=== PATIENT | female | born 1980 | race Two or more races ===

== ENCOUNTER 2022-09-27 14:00 | Outpatient (CLI) | payer OTHER | END 2022-09-27 16:09 | disposition home or self-care (01) | LOC: PRENATAL 14:00 | PROVIDERS: ATTEND Obstetrics & Gynecology Maternal & Fetal Medicine | DX: O35.9XX0 Maternal care for (suspected) fetal abnormality and damage, unspecified, not applicable or unspecified (principal); O09.519 Supervision of elderly primigravida, unspecified trimester; O35.3XX0 Maternal care for (suspected) damage to fetus from viral disease in mother, not applicable or unspecified; Z3A.19 19 weeks gestation of pregnancy ==

== ENCOUNTER 2022-11-11 18:24 | Outpatient (CLI) | payer OTHER ==
[2022-11-11] MEDS ORDERED: CHILDREN'S ASPI81 MG PO (19:41)
[2022-11-11] MEDS ORDERED: VITAMIN D310 MCG/1 M PO (19:42)
[2022-11-11] MEDS ORDERED: PRENATAL TABLE1 EAC1 PO (19:42)
== END 2022-11-12 19:21 | disposition home or self-care (01) ==
LOC: OBS/DEL 18:24
PROVIDERS: ATTEND Obstetrics & Gynecology
DX: O09.522 Supervision of elderly multigravida, second trimester (principal); R82.71 Bacteriuria; Z3A.26 26 weeks gestation of pregnancy

== ENCOUNTER 2022-12-27 09:04 | Outpatient (CLI) | payer OTHER ==
[~2022-12-27 09:04] MED LIST: CHILDREN'S ASPI81 MG PO; PRENATAL TABLE1 EAC1 PO; VITAMIN D310 MCG/1 M PO
== END 2022-12-27 10:25 | disposition home or self-care (01) ==
LOC: PRENATAL 09:04
PROVIDERS: ATTEND Obstetrics & Gynecology Maternal & Fetal Medicine
DX: O26.849 Uterine size-date discrepancy, unspecified trimester (principal); O35.9XX0 Maternal care for (suspected) fetal abnormality and damage, unspecified, not applicable or unspecified; O36.8199 Decreased fetal movements, unspecified trimester, other fetus; O09.519 Supervision of elderly primigravida, unspecified trimester; Z3A.32 32 weeks gestation of pregnancy

== ENCOUNTER 2023-01-31 18:59 | Inpatient (IN) | payer OTHER ==
[~2023-01-31] VITALS: Ht 157.5 cm; Wt 68.0 kg
[2023-01-31] MEDS ORDERED: VALTREX1000 MG PO (19:43)
[2023-02-03] MEDS ORDERED: VALACYCLOVIR1000 MG (16:05)
== END 2023-02-04 18:45 | disposition home or self-care (01) | DRG 787 ==
LOC: OB/GYN 18:59 → LDR 18:59 → OB/GYN 02-01 23:26
PROVIDERS: ADMIT Obstetrics & Gynecology; ATTEND Obstetrics & Gynecology
PROC: 3E0P7VZ Introduction of Hormone into Female Reproductive, Via Natural or Artificial Opening (ICD-10-PCS; 2023-01-31)
PROC: 4A1HXCZ Monitoring of Products of Conception, Cardiac Rate, External Approach (ICD-10-PCS; 2023-01-31)
PROC: 3E033VJ Introduction of Other Hormone into Peripheral Vein, Percutaneous Approach (ICD-10-PCS; 2023-02-01)
PROC: 10D00Z1 Extraction of Products of Conception, Low, Open Approach (ICD-10-PCS; principal; 2023-02-01 22:00)
DX: O62.1 Secondary uterine inertia (principal); O41.03X0 Oligohydramnios, third trimester, not applicable or unspecified; Z3A.37 37 weeks gestation of pregnancy; Z37.0 Single live birth; Z20.822 Contact with and (suspected) exposure to COVID-19